=== PATIENT | male | born 1930 | race Caucasian/White ===

== ENCOUNTER → 2016-12-14 | Outpatient (CLI) | payer MEDICARE ==
[~2016-12-14] MED LIST: ALLO300T2 PO; AMLO5TAB2 PO; ASPI-875 PO; CITA20TA4 PO; LISI40TA PO; MELO-195 PO; MTF500T PO; TERA2CAP13 PO
== END ==
LOC: FS 10:12
PROVIDERS: ATTEND Internal Medicine Hematology & Oncology
DX: C18.7 Malignant neoplasm of sigmoid colon (principal); I25.10 Atherosclerotic heart disease of native coronary artery without angina pectoris; M19.90 Unspecified osteoarthritis, unspecified site; Z95.5 Presence of coronary angioplasty implant and graft; Z79.899 Other long term (current) drug therapy
CPT/HCPCS: 99213

== ENCOUNTER → 2017-06-21 | Outpatient (CLI) | payer MEDICARE | LOC: ONC 13:42 | PROVIDERS: ATTEND Internal Medicine Hematology & Oncology | DX: C18.7 Malignant neoplasm of sigmoid colon (principal); I25.10 Atherosclerotic heart disease of native coronary artery without angina pectoris; I12.9 Hypertensive chronic kidney disease with stage 1 through stage 4 chronic kidney disease, or unspecified chronic kidney disease; N18.9 Chronic kidney disease, unspecified; E11.22 Type 2 diabetes mellitus with diabetic chronic kidney disease; N40.0 Benign prostatic hyperplasia without lower urinary tract symptoms; M19.91 Primary osteoarthritis, unspecified site; Z79.899 Other long term (current) drug therapy; Z95.5 Presence of coronary angioplasty implant and graft | CPT/HCPCS: 99213 ==

== ENCOUNTER 2018-09-09 10:57 | Inpatient (IN) | payer MEDICARE ==
[~2018-09-09] VITALS: Ht 170.2 cm; Wt 80.3 kg
[2018-09-09 13:45] VITALS: BP 101/66
[2018-09-09] MEDS ORDERED: NS IV 1000 ML 1,000 ML IV SCH (14:00)
--- OUTSIDE RECORDS SUMMARY | 2018-09-09 14:02 | XMS REPORT | Continuity of Care Document ---
Author Author [facility] Address Unknown Phone Unavailable Allergies Active Description Code Type Severity Reaction Onset Reported/Identified Relationship to Patient Clinical Status Yes No Known Allergies Drug N/A N/A Yes No Known Drug Allergies [id number] Drug Allergy Unknown N/A 08/10/2013 Medications There is no data. Problems Date Dx Coded Attending Type Code Diagnosis Diagnosed By 09/09/2014 ABE, BOBRUBY N Ot 153.3 09/09/2014 ABE, BOBAN N Ot 414.00 09/09/2014 AEB, BOBAN N Ot 585.3 09/09/2014 ABE, BOBAN N Ot V45.72 09/09/2014 ABE, BOBAN N Ot V45.82 09/09/2014 ABE, BOBAN N Ot V58.69 10/02/2014 ABE, BOBAN N Ot 153.3 10/02/2014 ABE, BOBAN N Ot 250.00 10/02/2014 ABE, BOBAN N Ot 403.90 10/02/2014 ABE, BOBAN N Ot 414.00 10/02/2014 ABE, BOBAN N Ot 585.3 10/02/2014 ABE, BOBAN N Ot 600.00 10/02/2014 ABE, BOBAN N Ot V45.72 10/02/2014 ABE, BOBAN N Ot V45.82 10/02/2014 ABE, BOBAN N Ot V58.69 12/27/2014 Ot 153.3 12/27/2014 Ot 414.00 12/27/2014 Ot 585.3 12/27/2014 Ot V12.3 12/27/2014 Ot V45.72 12/27/2014 Ot V45.82 12/27/2014 Ot V58.69 03/12/2015 ABE, BOBAN N Ot 153.3 03/12/2015 ABE, BOBAN N Ot 414.00 03/12/2015 ABE, BOBAN N Ot 715.89 03/12/2015 ABE, BOBAN N Ot V12.3 03/12/2015 ABE, BOBAN N Ot V45.72 03/12/2015 ABE, BOBAN N Ot V45.82 03/12/2015 ABE, BOBAN N Ot V58.69 03/18/2015 ABE, BOBAN N Ot 153.3 03/18/2015 ABE, BOBAN N Ot 414.00 03/18/2015 ABE, BOBAN N Ot 715.89 03/18/2015 ABE, BOBAN N Ot V12.3 03/18/2015 ABE, BOBAN N Ot V45.72 03/18/2015 ABE, BOBAN N Ot V45.82 03/18/2015 ABE, BOBAN N Ot V58.69 04/07/2015 ABE, BOBAN N Ot 153.3 04/07/2015 ABE, BOBAN N Ot 414.00 04/07/2015 ABE, BOBAN N Ot 715.89 04/07/2015 ABE, BOBAN N Ot V12.3 04/07/2015 ABE, BOBAN N Ot V45.72 04/07/2015 ABE, BOBAN N Ot V45.82 04/07/2015 ABE, BOBAN N Ot V58.69 07/16/2015 ABE, BOBAN N Ot 153.3 07/16/2015 ABE, BOBAN N Ot 414.00 07/16/2015 ABE, BOBAN N Ot 715.89 07/16/2015 ABE, BOBAN N Ot V45.72 07/16/2015 ABE, BOBAN N Ot V45.82 07/16/2015 ABE, BOBAN N Ot V58.69 12/17/2015 ABE, BOBAN N Ot C18.7 12/17/2015 ABE, BOBAN N Ot I25.10 12/17/2015 ABE, BOBAN N Ot M19.90 12/17/2015 ABE, BOBAN N Ot Z79.899 12/17/2015 ABE, BOBAN N Ot Z95.5 01/06/2016 ABE, BOBAN N Ot C18.7 01/06/2016 ABE, BOBAN N Ot I25.10 01/06/2016 ABE, BOBAN N Ot M19.90 01/06/2016 ABEKHUSHBOO GONZALEZAN N Ot Z79.899 01/06/2016 ABEKHUSHBOOAN N Ot Z95.5 06/16/2016 ABEWILLIAM N Ot C18.7 MALIGNANT NEOPLASM OF SIGMOID COLON 06/16/2016 ABE BOBAN N Ot I25.10 ATHSCL HEART DISEASE OF [place] CORONARY 06/16/2016 ABEKHUSHBOO GONZALEZAN N Ot M19.90 UNSPECIFIED OSTEOARTHRITIS, UNSPECIFIED 06/16/2016 ABE BOBAN N Ot Z79.899 OTHER AU PAIR (CURRENT) DRUG THERAPY 06/16/2016 ABEKHUSHBOOAN N Ot Z95.5 PRESENCE OF CORONARY ANGIOPLASTY IMPLANT 07/07/2016 ABE BOBAN N Ot C18.7 MALIGNANT NEOPLASM OF SIGMOID COLON 07/07/2016 ABEKHUSHBOOAN N Ot I25.10 ATHSCL HEART DISEASE OF [place] CORONARY 07/07/2016 ABEKHUSHBOOAN N Ot M19.90 UNSPECIFIED OSTEOARTHRITIS, UNSPECIFIED 07/07/2016 ABE BOBAN N Ot Z79.899 OTHER AU PAIR (CURRENT) DRUG THERAPY 07/07/2016 ABEKHUSHBOOAN N Ot Z95.5 PRESENCE OF CORONARY ANGIOPLASTY IMPLANT 12/15/2016 ABE, BOBAN N Ot C18.7 MALIGNANT NEOPLASM OF SIGMOID COLON 12/15/2016 ABEWILLIAM N Ot I25.10 ATHSCL HEART DISEASE OF [place] CORONARY 12/15/2016 KHUSHBOO FISHAN N Ot M19.90 UNSPECIFIED OSTEOARTHRITIS, UNSPECIFIED 12/15/2016 ABE, BOBAN N Ot Z79.899 OTHER LONGTERM (CURRENT) DRUG THERAPY 12/15/2016 ABE BOBAN N Ot Z95.5 PRESENCE OF CORONARY ANGIOPLASTY IMPLANT 01/04/2017 ABEKHUSHBOOAN N Ot C18.7 MALIGNANT NEOPLASM OF SIGMOID COLON 01/04/2017 ABE BOBAN N Ot I25.10 ATHSCL HEART DISEASE OF [place] CORONARY 01/04/2017 ABE BOBAN N Ot M19.90 UNSPECIFIED OSTEOARTHRITIS, UNSPECIFIED 01/04/2017 ABE, BOBAN N Ot Z79.899 OTHER LONGTERM (CURRENT) DRUG THERAPY 01/04/2017 ABE BOBAN N Ot Z95.5 PRESENCE OF CORONARY ANGIOPLASTY IMPLANT 07/14/2017 ABE BOBAN N Ot C18.7 MALIGNANT NEOPLASM OF SIGMOID COLON 07/14/2017 ABE, BOBAN N Ot 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 07/14/2017 ABE, BOBAN N Ot I12.9 HYPERTENSIVE CHRONIC KIDNEY DISEASE W ST 07/14/2017 ABE, BOBAN N Ot I25.10 ATHSCL HEART DISEASE OF [place] CORONARY 07/14/2017 ABE, BOBAN N Ot M19.91 PRIMARY OSTEOARTHRITIS, UNSPECIFIED SITE 07/14/2017 ABE, BOBAN N Ot N18.9 CHRONIC KIDNEY DISEASE, UNSPECIFIED 07/14/2017 ABE, BOBAN N Ot N40.0 BENIGN PROSTATIC HYPERPLASIA WITHOUT LOW 07/14/2017 ABE, BOBAN N Ot Z79.899 OTHER AU PAIR (CURRENT) DRUG THERAPY 07/14/2017 ABE, BOBAN N Ot Z95.5 PRESENCE OF CORONARY ANGIOPLASTY IMPLANT 08/26/2017 ABE BOBAN N Ot C18.7 MALIGNANT NEOPLASM OF SIGMOID COLON 08/26/2017 ABE, BOBAN N Ot 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 08/26/2017 ABE, BOBAN N Ot I12.9 HYPERTENSIVE CHRONIC KIDNEY DISEASE W ST 08/26/2017 ABE, BOBAN N Ot I25.10 ATHSCL HEART DISEASE OF [place] CORONARY 08/26/2017 ABE, BOBAN N Ot M19.91 PRIMARY OSTEOARTHRITIS, UNSPECIFIED SITE 08/26/2017 ABE, BOBAN N Ot N18.9 CHRONIC KIDNEY DISEASE, UNSPECIFIED 08/26/2017 ABE, BOBAN N Ot N40.0 BENIGN PROSTATIC HYPERPLASIA WITHOUT LOW 08/26/2017 ABE, BOBAN N Ot Z79.899 OTHER AU PAIR (CURRENT) DRUG THERAPY 08/26/2017 ABE, BOBAN N Ot Z95.5 PRESENCE OF CORONARY ANGIOPLASTY IMPLANT 05/15/2018 DEDRICK ELLIOTT MD E11.9 Type 2 diabetes mellitus without complications 05/15/2018 DEDRICK ELLIOTT MD F01.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 Results There is no data. Encounters ACCT No. Visit Date/Time Discharge Status Pt. Type Provider Facility Loc./Unit Complaint [id number] 04/14/2018 08:23:00 05/15/2018 14:25:00 DIS Inpatient DEDRICK ELLIOTT MD [facility] [id number] 04/14/2018 08:23:00 04/14/2018 23:59:59 CLS Outpatient Kailee De [id number] 06/24/2015 10:40:18 ACT Document Registration [id number] 06/21/2017 13:42:00 06/21/2017 23:59:59 CLS Outpatient ABE BOBAN N Via [facility] ONC [id number] 12/14/2016 10:12:00 12/14/2016 23:59:59 CLS Outpatient ABE, BOBAN N [facility] [id number] 06/15/2016 10:52:00 06/15/2016 23:59:59 CLS Outpatient ABE, BOBAN N [facility] [id number] 12/16/2015 10:16:00 12/16/2015 23:59:59 CLS Outpatient ABE BOBAN N [facility] [id number] 06/24/2015 10:40:00 06/24/2015 23:59:59 CLS Outpatient ABE, BOBAN N [facility] [id number] 03/11/2015 10:30:00 03/11/2015 23:59:59 CLS Outpatient ABE BOBAN N [facility] FS [id number] 09/03/2014 13:22:00 09/03/2014 23:59:59 CLS Outpatient ABE, BOBAN N [facility] [id number] 06/04/2014 14:18:00 06/04/2014 23:59:59 CLS Outpatient ABE, BOBAN N [facility] [id number] 02/05/2014 13:25:00 02/05/2014 23:59:59 CLS Outpatient [id number] 10/09/2013 12:56:00 10/09/2013 23:59:59 CLS Outpatient [id number] 08/20/2013 10:07:00 08/20/2013 23:59:59 CLS Outpatient [id number] 08/14/2013 09:23:00 08/14/2013 12:27:00 DIS Outpatient [id number] 08/10/2013 08:06:00 08/10/2013 23:59:59 CLS Outpatient [id number] 08/09/2013 07:50:00 08/09/2013 23:59:59 CLS Outpatient [id number] 05/22/2013 09:09:00 05/22/2013 23:59:59 CLS Outpatient [id number] 05/15/2013 11:49:00 05/15/2013 23:59:59 CLS Outpatient [id number] 12/27/2014 14:26:00 Document Registration
--- OUTSIDE RECORDS SUMMARY | 2018-09-09 14:02 | XMS REPORT | Clinical Summary ---
Author Author [facility] Organization [facility] Address Unknown Phone Unavailable Care Team Providers Care Intercell Connector Placer Name Role Phone Moi Patel MD PCP Unavailable Rich Cyr MD Unavailable Kimmy Jeff Tomás MURRAY Unavailable Dafne Lawrence RN Unavailable Unavailable Faviola Cruz RN Unavailable Unavailable Aruna Tucker RN Unavailable Unavailable Source Comments Some departments are not documenting in the electronic medical record. If you do not see the information that you expected, contact Release of Information in the Health Information Management department at [phone] for further assistance in locating additional records.[facility] Allergies No Known Allergies Medications End Date Status Medication Sig Dispensed Refills Start Date Active allopurinol (ZYLOPRIM) Take 300 mg 0 300 mg tablet by mouth daily. Active aspirin EC 81 mg tablet Take 81 mg by 0 mouth daily. Active citalopram (CELEXA) 20 mg Take 20 mg by 0 tablet mouth daily. Active meloxicam(+) (MOBIC) 15 Take 15 mg by 0 mg tablet mouth daily as needed. Active terazosin (HYTRIN) 2 mg Take 2 mg by 0 capsule mouth at bedtime daily. Active amLODIPine (NORVASC) 5 mg Take 5 mg by 0 tablet mouth daily. Active glipiZIDE CR (GLUCOTROL Take 2.5 mg 0 XL) 2.5 mg tablet by mouth daily with breakfast. Active acetaminophen (TYLENOL) Take 1 Tab by 30 Tab 1 325 mg tablet mouth every 4 3 hours as needed for Pain. Active oxyCODone (ROXICODONE) 5 Take 0.5 Tabs 30 Tab 0 mg tablet by mouth 3 every 6 hours as needed for Pain Earliest Fill Date: 09/11/13 Active senna/docusate Take 1 Tab by 60 Tab 0 (SENOKOT-S) 8.6/50 mg mouth daily. 3 tablet Active lidocaine (LIDODERM) 5 % Place to 30 Patch 1 topical patch savanah-incision 3 al area q12 hours. 12 hours on, then 12 hours off. Active clindamycin (CLEOCIN) 150 Take 150 mg 0 mg capsule by mouth three times daily. last dose will be 09/28/13 Active mirtazapine (REMERON) 15 Take 1 Tab by 5 Tab 0 mg tablet mouth at 3 bedtime daily. Active Problems Problem Noted Date Colon cancer 09/10/2013 Pneumothorax of right lung after biopsy 06/29/2013 Family History Medical History Relation Name Comments Cancer Father Mouth/Throat Cancer Cancer Maternal Rectal cancer Grandmother Relation Name Status Comments Father Maternal Grandmother Social History Date Tobacco Use Types Packs/Day Years Used Never Smoker Smokeless Tobacco: Never Used Alcohol Use Drinks/Week oz/Week Comments No Sex Assigned at Date Recorded Not on file Industry Job Start Date Occupation Not on file Not on file Not on file Travel End Travel History Travel Start No recent travel history available. Last Filed Vital Signs Time Taken Vital Sign Reading 10/26/2013 10:39 AM [employer] Blood Pressure 141/72 10/26/2013 10:39 AM [employer] Pulse 75 09/11/2013 8:00 AM [employer] Temperature 36.5 C (97.7 F) - Respiratory Rate - 10/26/2013 10:39 AM [employer] Oxygen Saturation 98% - Inhaled Oxygen - Concentration 10/26/2013 10:39 AM [employer]ER Weight 94.2 kg (207 lb 9.6 oz) 10/26/2013 10:39 AM [employer] EX[employer] Height 168.9 cm (5' 6.5") 10/26/2013 10:39 AM [employer] EXAM[employer]ER Body Mass Index 33.01 Plan of Treatment Health Maintenance Due Date Last Done Comments PHYSICAL (COMPREHENSIVE) 01/20/1937 EXAM DTAP/TDAP VACCINES (1 - 01/20/1950 Tdap) SHINGLES RECOMBINANT 01/20/1982 VACCINE (1 of 2) PNEUMONIA (PCV13/PPSV23) 01/20/1997 VACCINES (1 of 2 - PCV13) INFLUENZA VACCINE 05/03/2018 Results Not on filefrom Last 3 Months Insurance Payer Benefit Subscriber ID Type Phone Address Plan / Group MEDICARE MEDICARE xxxxxxxxxx Medicare PART A AND B BCBS YOMI BCBS YOMI xxxxxxxxxxxxxxx [place] ([place]) [place] [address] Advance Directives Patient has advance care planning documents, and code status on file. For more information, please contact: [facility] [address] [place] [address] Date Inactivated Comments Code Status Date Activated 09/11/2013 2:16 PM Full Code 09/04/2013 12:28 PM Provider has discussed Code Status Yes w/Patient or Family? 09/04/2013 12:28 PM Full Code 09/04/2013 10:22 AM Provider has discussed Code Status Yes w/Patient or Family? 06/30/2013 6:34 PM Full Code 06/29/2013 4:34 PM Provider has discussed Code Status No, more discussion w/Patient or Family? needed
[2018-09-09 14:11] LABS: BASOPHILS % (AUTO) 0 % (0-10); EOSINOPHILS % (AUTO) 0 % (0-10); HEMATOCRIT 36 % (40-54); LYMPHOCYTES # (AUTO) 0.8 X 10^3 (1.0-4.0); LYMPHOCYTES % (AUTO) 6 % (12-44); MEAN CORPUSCULAR HEMOGLOBIN 32 PG (25-34); MEAN CORPUSCULAR HGB CONC 33 G/DL (32-36); MEAN CORPUSCULAR VOLUME 97 FL (80-99); MEAN PLATELET VOLUME 10.8 FL (7.4-10.4); MONOCYTES # (AUTO) 0.3 X 10^3 (0.0-1.0); MONOCYTES % (AUTO) 2 % (0-12); NEUTROPHILS # (AUTO) 12.3 X 10^3 (1.8-7.8); NEUTROPHILS % (AUTO) 92 % (42-75); PLATELET COUNT 170 10^3/uL (130-400); RED BLOOD COUNT 3.73 10^6/uL (4.35-5.85); RED CELL DISTRIBUTION WIDTH 14.8 % (10.0-14.5); WHITE BLOOD COUNT 13.4 10^3/uL (4.3-11.0)
[2018-09-09] MEDS: cefTRIAXone FOR IV USE 1,000 MG in NS (IVPB) 50 ML IV SCH (14:11)
[2018-09-09] MEDS: NS IV 1000 ML 1,000 ML IV SCH ×4 (14:12→22:24)
[2018-09-09 14:32] LABS: ALBUMIN 3.1 GM/DL (3.2-4.5); BILIRUBIN,TOTAL 1.2 MG/DL (0.1-1.0); CALCIUM 8.8 MG/DL (8.5-10.1); CREATININE SERUM 1.79 MG/DL (0.60-1.30); POTASSIUM 4.2 MMOL/L (3.6-5.0)
[2018-09-09 14:41] LABS: BAND NEUTROPHILS 2 %; LYMPHOCYTES % (MANUAL) 3 %; MONOCYTES % (MANUAL) 4 %; NEUTROPHILS % (MANUAL) 91 %; RBC MORPH NORMAL
[2018-09-09] MEDS ORDERED: LORazepam 0.5 MG (ATIVAN) TABLET PO SCH (16:00)
[2018-09-09] MEDS ORDERED: AMLO5TAB7 PO (16:08)
[2018-09-09] MEDS ORDERED: RIVA1.5C6 PO (16:08)
[2018-09-09] MEDS ORDERED: TERA5CAP3 PO (16:08)
[2018-09-09] MEDS ORDERED: LORA0.5T PO (16:08)
[2018-09-09] MEDS ORDERED: DULO60CA58 PO (16:08)
[2018-09-09] MEDS ORDERED: GABA-486 PO (16:08)
[2018-09-09] MEDS ORDERED: ALLO300T2 PO (16:08)
[2018-09-09] MEDS ORDERED: LORA1TAB PO (16:08)
[2018-09-09] MEDS ORDERED: MEMA5TAB16 PO (16:08)
[2018-09-09] MEDS ORDERED: GABA-490 PO (16:08)
[2018-09-09] MEDS ORDERED: ZIPR40CA26 PO (16:08)
[2018-09-09] MEDS ORDERED: NF-GLIP2.5 PO (16:08)
[2018-09-09] MEDS ORDERED: MELO15TA39 PO (16:08)
[2018-09-09] MEDS ORDERED: LORazepam 0.5 MG (ATIVAN) TABLET ONE (16:17)
[2018-09-09] MEDS: NOREPINEPHRINE 4 MG in NS (IVPB) 250 ML IV SCH (16:18)
[2018-09-09] MEDS: LORazepam 0.5 MG (ATIVAN) TABLET PO PRN (16:37)
[2018-09-09] MEDS ORDERED: meTOprolol 5 MG/5 ML (LOPRESSOR) VIAL IV ONE (16:45)
[2018-09-09] MEDS: DILTIAZEM INJECTION 125 MG in NS (IVPB) 100 ML IV SCH (17:35)
[2018-09-09] MEDS ORDERED: ACETAMINOPHEN 80 MG CHEW/MELT (TYLENOL) PO PRN (18:45)
[2018-09-09 19:00] VITALS: BP 112/72
[2018-09-09 20:00] VITALS: BP 99/64
[2018-09-09] MEDS: ZIPRASIDONE 80 MG (GEODON) CAP PO SCH (20:25)
[2018-09-09 21:00] VITALS: BP 93/79
[2018-09-09] MEDS: inSUlin ASPART (NovoLOG) 1 UNIT/0.01 ML (CHARGE PER UNIT) SC SCH (21:00)
[2018-09-09] MEDS ORDERED: ZIPRASIDONE 80 MG (GEODON) CAP PO SCH (21:00)
[2018-09-09 22:00] VITALS: BP 94/56
[2018-09-09 23:00] VITALS: BP 93/54
[2018-09-10] VITALS (26 sets, daily range): BP systolic 87–132; BP diastolic 48–96
[2018-09-10] MEDS ORDERED: NS IV 1000 ML 1,000 ML IV ONE (01:45)
[2018-09-10] MEDS: NOREPINEPHRINE 4 MG in NS (IVPB) 250 ML IV SCH ×2 (02:11→14:18)
[2018-09-10] MEDS: NS IV 1000 ML 1,000 ML IV SCH ×4 (03:27→16:27)
[2018-09-10 03:47] LABS: BASOPHILS % (AUTO) 0 % (0-10); EOSINOPHILS % (AUTO) 0 % (0-10); HEMATOCRIT 32 % (40-54); HEMOGLOBIN 10.6 G/DL (13.3-17.7); LYMPHOCYTES # (AUTO) 0.8 X 10^3 (1.0-4.0); LYMPHOCYTES % (AUTO) 6 % (12-44); MEAN CORPUSCULAR HEMOGLOBIN 33 PG (25-34); MEAN CORPUSCULAR HGB CONC 33 G/DL (32-36); MEAN CORPUSCULAR VOLUME 99 FL (80-99); MEAN PLATELET VOLUME 10.9 FL (7.4-10.4); MONOCYTES # (AUTO) 0.8 X 10^3 (0.0-1.0); MONOCYTES % (AUTO) 6 % (0-12); NEUTROPHILS # (AUTO) 12.5 X 10^3 (1.8-7.8); NEUTROPHILS % (AUTO) 89 % (42-75); PLATELET COUNT 124 10^3/uL (130-400); RED BLOOD COUNT 3.25 10^6/uL (4.35-5.85); RED CELL DISTRIBUTION WIDTH 14.8 % (10.0-14.5); WHITE BLOOD COUNT 14.1 10^3/uL (4.3-11.0)
[2018-09-10 04:14] LABS: ALBUMIN 2.8 GM/DL (3.2-4.5); BILIRUBIN,TOTAL 0.6 MG/DL (0.1-1.0); CALCIUM 8.4 MG/DL (8.5-10.1); CREATININE SERUM 1.42 MG/DL (0.60-1.30); MAGNESIUM 1.5 MG/DL (1.8-2.4); PHOSPHORUS 3.2 MG/DL (2.3-4.7); TOTAL PROTEIN 5.4 GM/DL (6.4-8.2)
[2018-09-10] MEDS: MAGNESIUM 1 GM/100 ML IVPB 100 ML IV SCH ×3 (04:50→07:30)
--- NOTE | 2018-09-10 06:53 | Pulmonary Consultation ---
History of Present Illness History of Present Illness Date of Consultation 09/10/18 06:52 Date of Admission Allergies and Home Medications Allergies Coded Allergies: No Known Drug Allergies (Unverified , 08/10/13) Home Medications Allopurinol 300 Mg Tab, 300 MG PO DAILY, (Reported) Allopurinol 300 Mg Tablet, 300 MG PO DAILY, (Reported) Amlodipine Besylate 5 Mg Tab, 5 MG PO DAILY, (Reported) Amlodipine Besylate 5 Mg Tablet, 5 MG PO DAILY, (Reported) Aspirin 81 Mg Tablet.dr, 81 MG PO DAILY, (Reported) Citalopram Hydrobromide 20 Mg Tablet, 20 MG PO HS, (Reported) Duloxetine HCl 60 Mg Capsule.dr, 60 MG PO BID, (Reported) Gabapentin 100 Mg Capsule, 100 MG PO TID, (Reported) Gabapentin 400 Mg Capsule, 100 MG PO TID, (Reported) Glipizide 2.5 Mg Tab, 2.5 MG PO DAILY, (Reported) Lorazepam 1 Mg Tablet, 1 MG PO DAILY, (Reported) Lorazepam 0.5 Mg Tablet, 1 MG PO PRN, (Reported) Meloxicam 15 Mg Tablet, 15 MG PO HS PRN for ANXIETY, (Reported) Meloxicam 15 Mg Tablet, 15 MG PO DAILY, (Reported) Memantine HCl 5 Mg Tablet, 5 MG PO BID, (Reported) Rivastigmine Tartrate 1.5 Mg Capsule, 1.5 MG PO BID, (Reported) Terazosin HCl 5 Mg Capsule, 5 MG PO HS, (Reported) Terazosin Hcl 2 Mg Capsule, 2 MG PO HS, (Reported) Ziprasidone HCl 40 Mg Capsule, 40 MG PO DAILY, (Reported) Past Skxfgbw-Iqydfq-Irwlum Hx Patient Social History Smoking Status: Never a Smoker Recent Foreign Travel: No Contact w/Someone Who Travel: No Recent Infectious Disease Expo: No Immunizations Up To Date Date of Influenza Vaccine: Jul 10, 2018 Sepsis Event Evaluation Height, Weight, BMI Height: 5'7.00" Weight: 208lbs. 0.0oz. 94.820812xk; 32.6 BMI Method: Exam Exam Vital Signs Date Time Temp Pulse Resp B/P (MAP) Pulse Ox O2 Delivery O2 Flow Rate FiO2 09/10/18 06:10 87 20 111/65 (80) 91 Nasal Cannula 2.00 09/10/18 05:10 77 21 110/68 (82) 91 Nasal Cannula 2.00 09/10/18 04:00 72 9 98/58 (71) 92 Nasal Cannula 2.00 09/10/18 04:00 98.0 09/10/18 04:00 94 Nasal Cannula 2.00 09/10/18 03:00 68 15 94/56 (69) 92 Nasal Cannula 2.00 09/10/18 02:00 64 20 99/53 (68) 94 Nasal Cannula 2.00 09/10/18 01:00 70 09/10/18 01:00 77 10 87/54 (65) 92 Nasal Cannula 2.00 09/10/18 00:00 79 15 87/48 (61) 93 Nasal Cannula 2.00 09/10/18 00:00 94 Nasal Cannula 2.00 09/10/18 00:00 99.8 09/09/18 23:00 80 23 93/54 (67) 92 Nasal Cannula 2.00 09/09/18 22:00 100.2 09/09/18 22:00 84 29 94/56 (69) 94 Nasal Cannula 2.00 09/09/18 21:00 86 14 93/79 (84) 93 Nasal Cannula 2.00 09/09/18 20:00 100.8 09/09/18 20:00 94 Room Air 09/09/18 20:00 100 8 99/64 (76) 90 Nasal Cannula 2.00 09/09/18 19:00 105 09/09/18 19:00 105 17 112/72 (85) 92 Nasal Cannula 2.00 09/09/18 16:00 98.9 09/09/18 16:00 94 Room Air 09/09/18 14:46 94 Room Air 09/09/18 13:45 99.0 81 25 101/66 (78) 92 Room Air 09/09/18 13:00 90 I & O 09/10/18 07:00 Intake Total 1150 ml Output Total 800 ml Balance 350 ml Height & Weight Height: 5'7.00" Weight: 208lbs. 0.0oz. 94.826162dd; 32.6 BMI Method: Results Lab Laboratory Tests 09/09/18 13:54 09/10/18 03:35 ROSS QUINTANILLA DO Sep 10, 2018 06:53
[2018-09-10] MEDS ORDERED: morphine INJ 4 MG/ML 1 ML (VIAL/SYRINGE) ONE (06:57)
[2018-09-10] MEDS ORDERED: meTOprolol 5 MG/5 ML (LOPRESSOR) VIAL ONE (06:57)
[2018-09-10] MEDS ORDERED: NITROGLYCERIN 0.4 MG SL TABS BTL 25'S SL ONE (07:06)
[2018-09-10] MEDS: DILTIAZEM INJECTION 125 MG in NS (IVPB) 100 ML IV SCH ×2 (07:15→15:18)
[2018-09-10] MEDS: inSUlin ASPART (NovoLOG) 1 UNIT/0.01 ML (CHARGE PER UNIT) SC SCH ×4 (07:30→22:15)
[2018-09-10] MEDS: KCL 20 MEQ TAB (K-DUR) PO SCH (07:30)
[2018-09-10] MEDS: POTASSIUM CL 10MEQ/50ML IVPB 50 ML IV SCH (07:30)
--- NOTE | 2018-09-10 08:42 | History & Physical-Hospitalist ---
History of Present Illness HPI/Chief Complaint Pt is an 88yoCM with a PMH of dementia, HTN, NIDDMII who was direct admitted from OSH for septic shock. He is unable to provide me any history. Per outside records he presented due to lethargy and fever. He was found to be septic likely from a urinary source. HE was to be admitted at outside facility but unfortunately after antibiotic administration he has worsening hypotension and required pressors to maintain BP. He was transferred here for ICU level care due to septic shock. At this time he is lying in bed comfortably but does not respond. No family at bedside currently. He reportedly became agitated this morning and was given Ativan which has calmed him significantly. He is no longer on pressors. Source: patient Exam Limitations: clinical condition Date Seen 09/10/18 Time Seen by a Provider: 08:33 Attending Physician Mohini Holt MD PCP Moi Patel MD Referring Physician Date of Admission Sep 09, 2018 at 13:32 Home Medications & Allergies Home Medications Reviewed patient Home Medication Reconciliation performed by pharmacy medication reconciliations device repair technician and/or nursing. Patients Allergies have been reviewed. Allergies Allergies Coded Allergies No Known Drug Allergies (Yztpaqnkno24/8/13) Past Aduifqv-Szoosx-Cmsulj Hx Past Med/Social Hx: Reviewed Nursing Past Med/Soc Hx Patient Social History Employed/Student: retired Smoking Status: Never a Smoker Recent Foreign Travel: No Contact w/other who traveled: No Recent Infectious Disease Expo: No Immunizations Up To Date Date of Influenza Vaccine: Jul 10, 2018 Past Medical History Cardiac: Hypertension Neurological: Dementia Endocrine: Diabetes, Non-Insulin dep Psychosocial: Anxiety Family History Reviewed Nursing Family Hx Review of Systems ROS-Unable to Obtain: Unable to obtain Constitutional: see HPI Physical Exam Physical Exam Vital Signs Vital Signs - First Documented 09/09/18 09/09/18 09/10/18 13:00 13:45 07:25 Temp 99.0 Pulse 90 Resp 25 B/P (MAP) 101/66 (78) Pulse Ox 92 O2 Delivery Room Air FiO2 60 Capillary Refill : Height, Weight, BMI Height: 5'7.00" Weight: 183lbs. 0.0oz. 83.766907ye; 32.6 BMI Method: General Appearance: No Apparent Distress, Chronically ill HEENT: PERRL/EOMI, Moist Mucous Membranes Neck: Non Tender, Supple Respiratory: Lungs Clear, No Respiratory Distress, Other (On Vapotherm) Cardiovascular: Regular Rate, Rhythm, No Murmur Gastrointestinal: Normal Bowel Sounds, Non Tender, Soft Genital/Rectal: Other (light in place) Extremity: No Calf Tenderness, No Pedal Edema, Slow Capillary Refill Neurologic/Psychiatric: Alert, Other (did not respond to verbal stimuli, aroused to physical stimuli) Skin: Normal Color, Warm/Dry; No Mottled Results Results/Procedures Labs Patient resulted labs reviewed. Imaging: Reviewed Imaging Report Assessment/Plan Admission Diagnosis Septic Shock Admission Status: Inpatient Order (span 2 midnights) Reason for Inpatient Admission: septic shock, need IV abx and was on pressors, will take more than tow midnights to stabilize for discharge Critical Care Critically Ill Patient Diagnosis/Problems Diagnosis/Problems (1) Septic shock Status: Acute Assessment & Plan: Likely urinary source Continue on Rocephin Cultures from [facility] faxed and reveal GNR Await sensitivities (2) Atrial fibrillation with RVR Status: Acute Assessment & Plan: Rates up to 160 yesterday with hypotension Started on cardizem gtt per Cardiology troponin negative Cardiology consulted, appreciate recs Rate improved (3) AP (acute kidney injury) Status: Acute Assessment & Plan: Per Report from ER Physician at OSH Creatinine baseline is ~ 1 Down to 1.4 from 1.7 yesterday Trend Continue IVF resuscitation (4) Thrombocytopenia Status: Acute Assessment & Plan: New today Trend Likely due to dilution and GNR bacteremia (5) Dysphagia Status: Acute Assessment & Plan: Per RN daughter reports he has been choking on food Will consult ST Currently on dysphagia diet Qualifiers: Dysphagia type: unspecified Qualified Codes: R13.10 - Dysphagia, unspecified (6) Dementia Status: Chronic Assessment & Plan: Long standing but became agitated over night requiring Ativan Monitor closely Likely acutely worsened by ICU psychosis Qualifiers: Alzheimer's disease onset: unspecified onset Dementia behavioral disturbance: with behavioral disturbance Clinical Quality Measures DVT/VTE Risk/Contraindication: Risk Factor Score Per Nursin RFS Level Per Nursing on Admit: 4+=Very High MOHINI HOLT MD Sep 10, 2018 08:42
[2018-09-10 10:15] LABS: ABG BASE EXCESS -3.8 MMOL/L (-2.5-2.5); ABG OXYGEN SATURATION 96 % (94-100); ABG PCO2 41 MMHG (35-45); ABG PO2 73 MMHG (79-93); ABG TCO2 22.7 MMOL/L (21.0-31.0)
[2018-09-10 10:18] LABS: ABG PH 7.33 (7.37-7.43)
[2018-09-10 10:19] LABS: ALLENS TEST YES-POS; INSPIRED O2 20L/60%; PATIENT TEMP 97.3; VENTILATOR NO
--- NOTE | 2018-09-10 11:10 | Consultation-Cardiology ---
HPI-Cardiology Cardiology Consultation: Date of Consultation 09/10/18 Time Seen by a Provider: 10:45 Date of Admission Attending Physician Nisha Holt MD Admitting Physician Moi Patel MD Consulting Physician GARRISON CARTER MD, MA, FACP, FACC, FSCAI, CCDS HPI: Chief Complaint: Reasons for consultation: PAF with RVR HPI: 88 yo man transferred from [facility] yesterday to Dr Holt's service for treatment of UTI with septicemia. Has had PAF during this hosp. Cannot provide any history due to dementia. A daughter by his bedside was able tell us that the transfer from his care facility to [facility] was for high-grade fever, penile discharge, and some chest discomfort (of which she doesn't know details and the patient is unable to provide details). Has a h/o communication disability due to advance dementia. Has not been reporting shortness of breath. Has not had syncope or leg swelling. Has not report other symptoms Review of Systems-Cardiology Review of Systems Constitutional: other (Unable to obtain ROS from the patient due to dementia. To the extent it could be obtained from secondary sources is noted under HPI) [id number] Hx Patient Social History Smoking Status: Never a Smoker Recent Foreign Travel: No Recent Infectious Disease Expo: No Immunizations Up To Date Date of Influenza Vaccine: Jul 10, 2018 Past Medical History PMH As described under Assessment. Family Medical History Family Medical History: Fam h/o CAD (brother) according to old records Allergies and Home Medications Allergies Coded Allergies: No Known Drug Allergies (Unverified , 08/10/13) Home Medications Allopurinol 300 Mg Tab, 300 MG PO DAILY, (Reported) Allopurinol 300 Mg Tablet, 300 MG PO DAILY, (Reported) Amlodipine Besylate 5 Mg Tab, 5 MG PO DAILY, (Reported) Amlodipine Besylate 5 Mg Tablet, 5 MG PO DAILY, (Reported) Aspirin 81 Mg Tablet.dr, 81 MG PO DAILY, (Reported) Citalopram Hydrobromide 20 Mg Tablet, 20 MG PO HS, (Reported) Duloxetine HCl 60 Mg Capsule.dr, 60 MG PO BID, (Reported) Gabapentin 100 Mg Capsule, 100 MG PO TID, (Reported) Gabapentin 400 Mg Capsule, 100 MG PO TID, (Reported) Glipizide 2.5 Mg Tab, 2.5 MG PO DAILY, (Reported) Lorazepam 1 Mg Tablet, 1 MG PO DAILY, (Reported) Lorazepam 0.5 Mg Tablet, 1 MG PO PRN, (Reported) Meloxicam 15 Mg Tablet, 15 MG PO HS PRN for ANXIETY, (Reported) Meloxicam 15 Mg Tablet, 15 MG PO DAILY, (Reported) Memantine HCl 5 Mg Tablet, 5 MG PO BID, (Reported) Rivastigmine Tartrate 1.5 Mg Capsule, 1.5 MG PO BID, (Reported) Terazosin HCl 5 Mg Capsule, 5 MG PO HS, (Reported) Terazosin Hcl 2 Mg Capsule, 2 MG PO HS, (Reported) Ziprasidone HCl 40 Mg Capsule, 40 MG PO DAILY, (Reported) Patient Home Medication List Home Medication List Reviewed: Yes Physical Exam-Cardiology Physical Exam Vital Signs/I&O 09/10/18 09/10/18 09/10/18 09/10/18 00:00 00:00 00:00 01:00 Temp 99.8 Pulse 79 77 Resp 15 10 B/P (MAP) 87/48 (61) 87/54 (65) Pulse Ox 94 93 92 O2 Delivery Nasal Cannula Nasal Cannula Nasal Cannula O2 Flow Rate 2.00 2.00 2.00 09/10/18 09/10/18 09/10/18 09/10/18 01:00 02:00 03:00 04:00 Pulse 70 64 68 Resp 20 15 B/P (MAP) 99/53 (68) 94/56 (69) Pulse Ox 94 92 94 O2 Delivery Nasal Cannula Nasal Cannula Nasal Cannula O2 Flow Rate 2.00 2.00 2.00 09/10/18 09/10/18 09/10/18 09/10/18 04:00 04:00 05:10 06:10 Temp 98.0 Pulse 72 77 87 Resp 9 21 20 B/P (MAP) 98/58 (71) 110/68 (82) 111/65 (80) Pulse Ox 92 91 91 O2 Delivery Nasal Cannula Nasal Cannula Nasal Cannula O2 Flow Rate 2.00 2.00 2.00 09/10/18 09/10/18 09/10/18 09/10/18 07:00 07:04 07:19 07:25 Pulse 160 106 93 Resp 30 26 B/P (MAP) 126/60 (82) 113/68 (83) Pulse Ox 89 94 95 O2 Delivery Nasal Cannula Vapotherm Vapotherm O2 Flow Rate 2.00 60.00 20.00 20.00 FiO2 60 09/10/18 09/10/18 09/10/18 08:00 09:00 10:00 Pulse 75 72 66 Resp 22 21 20 B/P (MAP) 112/66 (81) 110/64 (79) 116/59 (78) Pulse Ox 94 94 94 O2 Delivery Vapotherm Nasal Cannula Nasal Cannula O2 Flow Rate 2.00 2.00 2.00 09/10/18 00:00 Intake Total 1150 ml Output Total 600 ml Balance 550 ml Capillary Refill : Constitutional: well-developed, well-nourished, other (unable to provide any history) HEENT: PERRL, other Neck: carotid pulses are 2 + bilaterally Respiratory: No accessory muscle use; other (fair to good bilat air entry; diminished at the bases) Cardiovascular: regular rate-rhythm, S1 and S2, systolic murmur (2/6 NATALYA at card base) Gastrointestinal: No tender; soft; No guarding, No rebound; audible bowel sounds Extremities: swelling (mild leg edema); No clubbing, No cyanosis Neurologic/Psychiatric: other (not able to answer questions of orientation; somnolent; seems to able to move all limbs equally) Skin: No rash on exposed areas, No ulcerations on exposed areas Data Review Labs Laboratory Tests 09/09/18 13:54: White Blood Count 13.4H, Red Blood Count 3.73L, Hemoglobin 12.0L, Hematocrit 36L , Mean Corpuscular Volume 97, Mean Corpuscular Hemoglobin 32, Mean Corpuscular Hemoglobin Concent 33, Red Cell Distribution Width 14.8H, Platelet Count 170, Mean Platelet Volume 10.8H, Neutrophils (%) (Auto) 92H, Lymphocytes (%) (Auto) 6L, Monocytes (%) (Auto) 2, Eosinophils (%) (Auto) 0, Basophils (%) (Auto) 0, Neutrophils # (Auto) 12.3H, Lymphocytes # (Auto) 0.8L, Monocytes # (Auto) 0.3, Eosinophils # (Auto) 0.0, Basophils # (Auto) 0.0, Neutrophils % (Manual) 91, Lymphocytes % (Manual) 3, Monocytes % (Manual) 4, Band Neutrophils 2, Blood Morphology Comment NORMAL, Sodium Level 139, Potassium Level 4.2, Chloride Level 107, Carbon Dioxide Level 22, Anion Gap 10, Blood Urea Nitrogen 30H, Creatinine 1.79H, Estimat Glomerular Filtration Rate 36, BUN/Creatinine Ratio 17 , Glucose Level 151H, Lactic Acid Level 1.45, Calcium Level 8.8, Corrected Calcium 9.5, Total Bilirubin 1.2H, Aspartate Amino Transf (AST/SGOT) 28, Alanine Aminotransferase (ALT/SGPT) 21, Alkaline Phosphatase 60, Total Protein 6.0L, Albumin 3.1L 09/10/18 03:35: White Blood Count 14.1H, Red Blood Count 3.25L, Hemoglobin 10.6L, Hematocrit 32L , Mean Corpuscular Volume 99, Mean Corpuscular Hemoglobin 33, Mean Corpuscular Hemoglobin Concent 33, Red Cell Distribution Width 14.8H, Platelet Count 124L, Mean Platelet Volume 10.9H, Neutrophils (%) (Auto) 89H, Lymphocytes (%) (Auto) 6L, Monocytes (%) (Auto) 6, Eosinophils (%) (Auto) 0, Basophils (%) (Auto) 0, Neutrophils # (Auto) 12.5H, Lymphocytes # (Auto) 0.8L, Monocytes # (Auto) 0.8, Eosinophils # (Auto) 0.0, Basophils # (Auto) 0.0, Sodium Level 140, Potassium Level 4.0, Chloride Level 112H, Carbon Dioxide Level 18L, Anion Gap 10, Blood Urea Nitrogen 32H, Creatinine 1.42H, Estimat Glomerular Filtration Rate 47, BUN/ Creatinine Ratio 23, Glucose Level 116H, Calcium Level 8.4L, Corrected Calcium 9.4, Total Bilirubin 0.6, Aspartate Amino Transf (AST/SGOT) 23, Alanine Aminotransferase (ALT/SGPT) 17, Alkaline Phosphatase 50, Total Protein 5.4L, Albumin 2.8L, Phosphorus Level 3.2, Magnesium Level 1.5L, Troponin I < 0.30 09/10/18 10:08: Blood Gas Puncture Site RT BRACH, Blood Gas Patient Temperature 97.3, Arterial Blood pH 7.33*L, Arterial Blood Partial Pressure CO2 41, Arterial Blood Partial Pressure O2 73L, Arterial Blood HCO3 21L, Arterial Blood Total CO2 22.7, Arterial Blood Oxygen Saturation 96, Arterial Blood Base Excess -3.8L, Jorge Test YES-POS, Blood Gas Ventilator Setting NO, Blood Gas Inspired Oxygen 20L/60% Laboratory Tests 09/09/18 13:54 09/10/18 03:35 A/P-Cardiology Assessment/Admission Diagnosis UTI with sepsis Sinus node dysfunction: NSR with 1st deg AVB alternating with PAF during this hospitalization Advanced dementia CAD: had cardiac cath a single coronary stent in 2004 (LAD stent: Taxus 2.5x16) . MPI of Aug 2013 showed apical infarction with small to mod ischemia, managed medically Echo of Aug 2013 showed LVEF 60%, mild AoV sclerosis and PASP 25 mmHg Chronic RBBB Colon cancer diagnosed in April 2013, treated with partial colectomy in Sep 2013 in . 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 I spoke with his daughter. 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 The request no pacemaker or intubation/mech vent or any other invasive management Clinical Quality Measures DVT/VTE Risk/Contraindication: Risk Factor Score Per Nursin RFS Level Per Nursing on Admit: 4+=Very High GARRISON CARTER MD FACP FAC CCDS Sep 10, 2018 11:10
[2018-09-10] MEDS: LORazepam 1 MG (ATIVAN) TAB PO SCH ×2 (11:15→12:05)
[2018-09-10] MEDS: ZIPRASIDONE 40 MG (GEODON) CAP PO SCH (11:17)
[2018-09-10] MEDS: cefTRIAXone FOR IV USE 1,000 MG in NS (IVPB) 50 ML IV SCH (12:08)
--- NOTE | 2018-09-10 14:11 | Diagnostic Imaging Report ---
INDICATION: Septic shock. FINDINGS: There is cardiomegaly. There is some venous congestion. Lungs are clear. There is no pleural effusion or pneumothorax. Mediastinum is unremarkable. IMPRESSION: Cardiomegaly and mild central pulmonary venous congestion. Dictated by: Dictated on workstation # [id number]
[2018-09-10] MEDS: LORazepam 0.5 MG (ATIVAN) TABLET PO PRN (14:43)
[2018-09-10] MEDS: ZIPRASIDONE 80 MG (GEODON) CAP PO SCH (22:16)
[2018-09-10] MEDS: APIXABAN 2.5 MG (ELIQUIS) TABLET PO SCH (22:16)
[2018-09-11] VITALS (16 sets, daily range): BP systolic 99–151; BP diastolic 63–90
[2018-09-11] MEDS: NOREPINEPHRINE 4 MG in NS (IVPB) 250 ML IV SCH ×2 (02:29→16:32)
[2018-09-11] MEDS: NS IV 1000 ML 1,000 ML IV SCH ×3 (02:29→21:43)
[2018-09-11 03:36] LABS: BASOPHILS % (AUTO) 0 % (0-10); EOSINOPHILS % (AUTO) 0 % (0-10); HEMATOCRIT 33 % (40-54); LYMPHOCYTES # (AUTO) 0.7 X 10^3 (1.0-4.0); LYMPHOCYTES % (AUTO) 8 % (12-44); MEAN CORPUSCULAR HEMOGLOBIN 32 PG (25-34); MEAN CORPUSCULAR HGB CONC 34 G/DL (32-36); MEAN CORPUSCULAR VOLUME 95 FL (80-99); MEAN PLATELET VOLUME 10.9 FL (7.4-10.4); MONOCYTES # (AUTO) 0.5 X 10^3 (0.0-1.0); MONOCYTES % (AUTO) 5 % (0-12); NEUTROPHILS # (AUTO) 7.8 X 10^3 (1.8-7.8); NEUTROPHILS % (AUTO) 86 % (42-75); PLATELET COUNT 153 10^3/uL (130-400); RED BLOOD COUNT 3.43 10^6/uL (4.35-5.85); WHITE BLOOD COUNT 9.1 10^3/uL (4.3-11.0)
[2018-09-11 04:03] LABS: ALANINE AMINOTRANSFERASE 17 U/L (0-55); ALBUMIN 2.9 GM/DL (3.2-4.5); ALKALINE PHOSPHATASE 57 U/L (40-136); BILIRUBIN,TOTAL 0.4 MG/DL (0.1-1.0); BUN/CREATININE RATIO 26; CALCIUM 8.6 MG/DL (8.5-10.1); CARBON DIOXIDE 18 MMOL/L (21-32); CHLORIDE 112 MMOL/L (98-107); CREATININE SERUM 1.01 MG/DL (0.60-1.30); GFR ESTIMATED > 60; GLUCOSE 103 MG/DL (70-105); MAGNESIUM 1.8 MG/DL (1.8-2.4); PHOSPHORUS 2.3 MG/DL (2.3-4.7); POTASSIUM 3.8 MMOL/L (3.6-5.0); SODIUM 141 MMOL/L (135-145); TOTAL PROTEIN 6.1 GM/DL (6.4-8.2)
[2018-09-11] MEDS: MAGNESIUM 1 GM/100 ML IVPB 100 ML IV SCH (06:19)
[2018-09-11] MEDS: POTASSIUM CL 10MEQ/50ML IVPB 50 ML IV SCH (06:19)
[2018-09-11] MEDS: KCL 20 MEQ TAB (K-DUR) PO SCH (06:20)
[2018-09-11] MEDS: inSUlin ASPART (NovoLOG) 1 UNIT/0.01 ML (CHARGE PER UNIT) SC SCH ×4 (06:20→19:59)
--- NOTE | 2018-09-11 07:17 | Pulmonary Progress Note ---
Subjective Time Seen by a Provider: 07:24 Subjective/Events-last exam Pt currently requiring 70% Vapotherm. He is still on Cardizem gtt. Sepsis Event Evaluation Height, Weight, BMI Height: 5'7.00" Weight: 184lbs. 0.5oz. 83.606869eb; 32.6 BMI Method: Focused Exam Lactate Level 09/09/18 13:54: Lactic Acid Level 1.45 Exam Exam Vital Signs Date Time Temp Pulse Resp B/P (MAP) Pulse Ox O2 Delivery O2 Flow Rate FiO2 09/11/18 06:40 93 Vapotherm 30.00 70 09/11/18 06:01 87 10 151/82 (105) 93 Vapotherm 70.00 30.00 09/11/18 06:00 97.2 09/11/18 05:01 84 11 146/75 (98) 92 Vapotherm 70.00 30.00 09/11/18 04:01 87 10 141/90 (107) 95 Vapotherm 70.00 30.00 09/11/18 04:00 98.0 09/11/18 04:00 94 Vapotherm 30.00 80 09/11/18 03:21 99.5 81 17 145/73 (97) 92 Vapotherm 70.00 30.00 09/11/18 03:02 80 25 104/63 (77) 93 Vapotherm 70.00 30.00 09/11/18 02:54 94 Vapotherm 30.00 70 09/11/18 02:02 82 17 133/69 (90) 94 Vapotherm 70.00 30.00 09/11/18 01:02 92 16 122/71 (88) 94 Vapotherm 70.00 30.00 09/11/18 01:00 87 09/11/18 00:02 78 27 117/73 (88) 96 Vapotherm 70.00 30.00 09/11/18 00:00 98.7 09/11/18 00:00 94 Vapotherm 30.00 80 09/10/18 23:25 82 20 94 Vapotherm 70.00 30.00 09/10/18 23:23 98.1 75 20 125/62 (83) 96 Vapotherm 80.00 30.00 09/10/18 23:22 96 Vapotherm 30.00 80 09/10/18 23:02 75 24 93/54 (67) 93 Vapotherm 80.00 30.00 09/10/18 22:02 79 10 116/67 (83) 100 Vapotherm 80.00 30.00 09/10/18 21:02 82 15 130/71 (90) 99 Vapotherm 80.00 30.00 09/10/18 20:02 76 19 132/87 (102) 99 Vapotherm 80.00 30.00 09/10/18 20:00 94 Vapotherm 30.00 80 09/10/18 19:31 96 Vapotherm 30.00 80 09/10/18 19:02 68 21 119/66 (83) 97 Vapotherm 80.00 30.00 09/10/18 19:00 74 09/10/18 19:00 97.9 09/10/18 18:00 70 21 113/60 (77) 97 Vapotherm 80.00 30.00 09/10/18 17:00 73 22 110/58 (75) 97 Vapotherm 80.00 30.00 09/10/18 16:00 75 21 114/61 (78) 97 Vapotherm 60.00 20.00 09/10/18 16:00 98.6 Vapotherm 80.00 30.00 09/10/18 16:00 94 Vapotherm 30.00 80 09/10/18 15:00 80 18 114/57 (76) 95 Vapotherm 60.00 20.00 09/10/18 14:51 90 Vapotherm 20.00 60 09/10/18 14:00 83 12 115/79 (91) 91 Vapotherm 60.00 20.00 09/10/18 13:00 73 09/10/18 13:00 71 19 118/96 (103) 92 Vapotherm 60.00 20.00 09/10/18 12:35 97.5 Vapotherm 60.00 20.00 09/10/18 12:00 94 Vapotherm 20.00 60 09/10/18 12:00 69 14 113/71 (85) 94 Nasal Cannula 2.00 09/10/18 12:00 99.3 09/10/18 11:00 68 24 116/72 (87) 94 Nasal Cannula 2.00 09/10/18 10:00 66 20 116/59 (78) 94 Nasal Cannula 2.00 09/10/18 09:00 72 21 110/64 (79) 94 Nasal Cannula 2.00 09/10/18 08:00 94 Vapotherm 20.00 60 09/10/18 08:00 75 22 112/66 (81) 94 Vapotherm 2.00 09/10/18 07:25 95 Vapotherm 20.00 60 09/10/18 07:19 93 26 113/68 (83) 94 Vapotherm 60.00 20.00 I & O 09/11/18 07:00 Intake Total 3500 ml Output Total 2975 ml Balance 525 ml Height & Weight Height: 5'7.00" Weight: 184lbs. 0.5oz. 83.717239zz; 32.6 BMI Method: General Appearance: No Apparent Distress, Chronically ill HEENT: PERRL/EOMI, Moist Mucous Membranes Neck: Non Tender, Supple Respiratory: Accessory Muscle Use, Decreased Breath Sounds, Other (On Vapotherm ) Cardiovascular: Regular Rate, Rhythm, No Murmur Extremity: No Calf Tenderness, No Pedal Edema, Slow Capillary Refill Neurologic/Psychiatric: Alert, Other (did not respond to verbal stimuli, aroused to physical stimuli) Skin: Normal Color, Warm/Dry; No Mottled Results Lab Laboratory Tests 09/09/18 13:54 09/10/18 03:35 09/11/18 03:10 Assessment/Plan Assessment/Plan Septic Shock - resolved Acute respiratory failure -Currently on Vapotherm at 70% oxygen -Titrate as tolerated for Sp02 90-95% Afib RVR -On Cardizem gtt -Cardiology following CP - resolved 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 Will consult hospice for education. I am not sure what the status is of his previous colon cancer. Pt is ok for transfer to [address] [place] [address] off Cardizem gtt. ROSS QUINTANILLA DO Sep 11, 2018 07:17
--- NOTE | 2018-09-11 08:37 | Progress Note-Cardiology ---
Cardiology SOAP Progress Note Subjective: Does not respond to questions. Sitter at the bedside d/t confusion at pulling at lines. Unable to obtain any information from pt. Objective: I&O/Vital Signs 09/11/18 09/11/18 09/11/18 09/11/18 19:49 20:00 20:00 21:00 Temp 98.5 Pulse 82 83 74 Resp 28 11 14 B/P (MAP) 99/73 (82) 139/75 (96) Pulse Ox 100 100 100 100 O2 Delivery Vapotherm Vapotherm Vapotherm Vapotherm O2 Flow Rate 50.00 25.00 50.00 50.00 30.00 30.00 30.00 FiO2 50 09/11/18 09/12/18 09/12/18 09/12/18 22:00 00:00 00:00 01:00 Temp 98.0 Pulse 82 80 Resp 21 B/P (MAP) 128/75 (92) Pulse Ox 100 100 100 O2 Delivery Vapotherm Vapotherm Vapotherm O2 Flow Rate 30.00 20.00 50.00 20.00 FiO2 50 50 09/12/18 09/12/18 09/12/18 09/12/18 01:00 01:56 02:00 03:00 Pulse 81 84 85 Resp 25 27 23 B/P (MAP) 129/98 (108) 143/74 (97) 133/67 (89) Pulse Ox 100 100 99 95 O2 Delivery Vapotherm Vapotherm Vapotherm Vapotherm O2 Flow Rate 50.00 20.00 35.00 35.00 20.00 15.00 15.00 FiO2 50 09/12/18 09/12/18 09/12/18 09/12/18 04:00 04:00 05:00 06:00 Pulse 85 88 85 Resp 14 26 20 B/P (MAP) 137/76 (96) 113/86 (95) 112/97 (102) Pulse Ox 100 100 99 99 O2 Delivery Vapotherm Vapotherm Vapotherm Vapotherm O2 Flow Rate 20.00 35.00 35.00 35.00 15.00 15.00 15.00 FiO2 50 09/12/18 06:48 Pulse Ox 98 O2 Delivery Vapotherm O2 Flow Rate 15.00 FiO2 35 09/12/18 00:00 Intake Total 1200 ml Output Total 2600 ml Balance -1400 ml Weight (Pounds): 184 Weight (Ounces): 0.5 Weight (Calculated Kilograms): 83.713913 Constitutional: well-developed, well-nourished, other (unable to provide any history) Respiratory: No accessory muscle use; other (fair to good bilat air entry; diminished at the bases) Cardiovascular: irregularly irregular, S1 and S2, systolic murmur (2/6 NATALYA at card base) Gastrointestional: No tender; soft; No guarding, No rebound; audible bowel sounds Extremities: swelling (mild leg edema); No clubbing, No cyanosis Neurologic/Psychiatric: other (not able to answer questions of orientation; somnolent; seems to able to move all limbs equally) Skin: No rash on exposed areas, No ulcerations on exposed areas Results/Procedures: Labs Laboratory Tests 09/11/18 11:04: Glucometer 95 09/11/18 15:36: Glucometer 99 09/11/18 19:58: Glucometer 100 09/12/18 03:40: White Blood Count 7.9, Red Blood Count 3.68L, Hemoglobin 11.7L, Hematocrit 34L, Mean Corpuscular Volume 93, Mean Corpuscular Hemoglobin 32, Mean Corpuscular Hemoglobin Concent 34, Red Cell Distribution Width 14.5, Platelet Count 146, Mean Platelet Volume 11.4H, Neutrophils (%) (Auto) 79H, Lymphocytes (%) (Auto) 11L, Monocytes (%) (Auto) 9, Eosinophils (%) (Auto) 1, Basophils (%) (Auto) 0, Neutrophils # (Auto) 6.2, Lymphocytes # (Auto) 0.9L, Monocytes # (Auto) 0.7, Eosinophils # (Auto) 0.1, Basophils # (Auto) 0.0, Sodium Level 140, Potassium Level 2.9L, Chloride Level 107, Carbon Dioxide Level 22, Anion Gap 11, Blood Urea Nitrogen 20H, Creatinine 0.81, Estimat Glomerular Filtration Rate > 60, BUN /Creatinine Ratio 25, Glucose Level 110H, Calcium Level 8.8, Corrected Calcium 9.6, Phosphorus Level 2.1L, Magnesium Level 1.3L, Total Bilirubin 0.6, Aspartate Amino Transf (AST/SGOT) 56H, Alanine Aminotransferase (ALT/SGPT) 32, Alkaline Phosphatase 69, Total Protein 6.0L, Albumin 3.0L Microbiology 09/09/18 Blood Culture - Preliminary, Resulted No growth 09/09/18 MRSA Screen - Final, Complete MRSA not isolated A/P: Assessment: UTI with sepsis Sinus node dysfunction: NSR with 1st deg AVB alternating with PAF during this hospitalization Advanced dementia CAD: had cardiac cath a single coronary stent in 2004 (LAD stent: Taxus 2.5x16) . MPI of Aug 2013 showed apical infarction with small to mod ischemia, managed medically Echo of Aug 2013 showed LVEF 60%, mild AoV sclerosis and PASP 25 mmHg Chronic RBBB Colon cancer diagnosed in April 2013, treated with partial colectomy in Sep 2013 in . 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 They request no pacemaker or intubation/mech vent or any other invasive management TIM FERRERA Sep 11, 2018 08:37
--- NOTE | 2018-09-11 09:19 | Diagnostic Imaging Report ---
EXAMINATION: Chest radiograph, portable AP view. DATE: September 11, 2018 at 0339 hours. INDICATION: 88-year-old male, septic shock. COMPARISON: September 10, 2018. FINDINGS: There are low lung volumes with associated central bronchovascular crowding. The lung volumes are unchanged since the comparison exam. Stable overall appearance of the cardiomediastinal silhouette. There is no identified pneumothorax. There is grossly unchanged nonspecific bibasilar airspace consolidation. IMPRESSION: Grossly unchanged prominent low lung volumes with nonspecific bibasilar airspace consolidation. Dictated by: Dictated on workstation # [id number]
[2018-09-11] MEDS: APIXABAN 2.5 MG (ELIQUIS) TABLET PO SCH ×2 (10:23→20:41)
[2018-09-11] MEDS: ZIPRASIDONE 40 MG (GEODON) CAP PO SCH (10:25)
[2018-09-11] MEDS: cefTRIAXone FOR IV USE 1,000 MG in NS (IVPB) 50 ML IV SCH (12:17)
[2018-09-11] MEDS ORDERED: ASPI-983 PO (12:58)
[2018-09-11] MEDS ORDERED: POLY17PO6 PO (12:58)
[2018-09-11] MEDS ORDERED: LIDO76.5 TP (12:58)
[2018-09-11] MEDS ORDERED: LORA1TAB PO (12:58)
[2018-09-11] MEDS ORDERED: ZPR40C PO (12:58)
[2018-09-11] MEDS ORDERED: ACET-2650 PO ×2 (12:58)
--- NOTE | 2018-09-11 14:20 | Speech Therapy Progress Note ---
Therapy Progress Note ST made 2 attempts to evaluate patient per physician's order. Patient was unable to participate due to current medical status at this time. BHARGAVI BECERRIL Sep 11, 2018 14:20
--- NOTE | 2018-09-11 15:10 | Progress Note-Hospitalist ---
Progress Note Progress Notes/Assess & Plan Date Seen 09/11/18 Time Seen by Provider: 14:56 Assessment & Plan The patient is an 88-year-old white male transferred to the hospital service from the [facility] emergency room. He had presented there in marginal status from an assisted living facility on a dementia wing. His daughter states that he had become aggressive and was sent to an inpatient [facility] facility. She stated that he been taking Risperdal for some period of time and this had been switched at the facility to [facility] and has gone down steadily since that period of time. He has a poor appetite and has lost considerable weight. His day-to- day performance is mostly bedfast. He has not ambulated since the [facility] experience. Physical exam: His eyes open from time to time all were in the room but he does not focus on anyone or attempt to speak. Lungs show shallow and distant breath sounds. CV is irregular and consistent with atrial fibrillation. Impression: Apparent UTI and sepsis. The patient had culture done at [facility] and these results are not available to us. 2.advanced dementia. 3.history of colon cancer with successful resection 2012. A PET scan at that time suggested multiple pulmonary metastases. The daughter states that these were biopsied and were not malignant. Plan: Continue present efforts. Nurse Dayanna and I had a espinoza discussion with the daughter relative to the options including comfort care. Focused Exam Lactate Level 09/09/18 13:54: Lactic Acid Level 1.45 GARRY PRIEST MD Sep 11, 2018 15:10
--- NOTE | 2018-09-11 15:10 | Progress Note-Cardiology ---
Cardiology SOAP Progress Note Subjective: Not able to provide any history Objective: I&O/Vital Signs 09/11/18 09/11/18 09/11/18 09/11/18 03:21 04:00 04:00 04:01 Temp 99.5 98.0 Pulse 81 87 Resp 17 10 B/P (MAP) 145/73 (97) 141/90 (107) Pulse Ox 92 94 95 O2 Delivery Vapotherm Vapotherm Vapotherm O2 Flow Rate 70.00 30.00 70.00 30.00 30.00 FiO2 80 09/11/18 09/11/18 09/11/18 09/11/18 05:01 06:00 06:01 06:40 Temp 97.2 Pulse 84 87 Resp 11 10 B/P (MAP) 146/75 (98) 151/82 (105) Pulse Ox 92 93 93 O2 Delivery Vapotherm Vapotherm Vapotherm O2 Flow Rate 70.00 70.00 30.00 30.00 30.00 FiO2 70 09/11/18 09/11/18 09/11/18 09/11/18 07:00 07:00 08:00 08:00 Pulse 101 88 80 Resp 23 18 B/P (MAP) 151/81 (104) 134/85 (101) Pulse Ox 94 93 94 O2 Delivery Vapotherm Vapotherm Vapotherm O2 Flow Rate 70.00 30.00 70.00 30.00 30.00 FiO2 80 09/11/18 09/11/18 09/11/18 09/11/18 08:00 09:00 10:00 11:00 Temp 99.3 Pulse 79 81 82 Resp 18 17 10 B/P (MAP) 144/72 (96) 141/76 (97) 142/75 (97) Pulse Ox 100 100 100 O2 Delivery Vapotherm Vapotherm Vapotherm O2 Flow Rate 70.00 70.00 70.00 30.00 30.00 30.00 09/11/18 09/11/18 09/11/18 09/11/18 12:00 12:00 12:00 13:00 Temp 98.1 Pulse 85 Resp 24 15 B/P (MAP) 133/70 (91) Pulse Ox 100 100 100 O2 Delivery Vapotherm Vapotherm Vapotherm O2 Flow Rate 70.00 30.00 70.00 30.00 30.00 FiO2 70 09/11/18 09/11/18 13:31 14:00 Pulse 85 Resp 35 Pulse Ox 100 100 O2 Delivery Vapotherm Vapotherm O2 Flow Rate 30.00 70.00 30.00 FiO2 70 09/11/18 00:00 Intake Total 2300 ml Output Total 1025 ml Balance 1275 ml Weight (Pounds): 184 Weight (Ounces): 0.5 Weight (Calculated Kilograms): 83.112175 Constitutional: well-developed, well-nourished, other (unable to provide any history) Respiratory: No accessory muscle use; other (fair to good bilat air entry; diminished at the bases) Cardiovascular: irregularly irregular, S1 and S2, systolic murmur (2/6 NATALYA at card base) Gastrointestional: No tender; soft; No guarding, No rebound; audible bowel sounds Extremities: swelling (mild leg edema); No clubbing, No cyanosis Neurologic/Psychiatric: other (not able to answer questions of orientation; somnolent; seems to able to move all limbs equally) Skin: No rash on exposed areas, No ulcerations on exposed areas Results/Procedures: Labs Laboratory Tests 09/10/18 15:54: Glucometer 163H 09/10/18 21:55: Glucometer 88 09/11/18 03:10: White Blood Count 9.1, Red Blood Count 3.43L, Hemoglobin 11.0L, Hematocrit 33L, Mean Corpuscular Volume 95, Mean Corpuscular Hemoglobin 32, Mean Corpuscular Hemoglobin Concent 34, Red Cell Distribution Width 15.0H, Platelet Count 153, Mean Platelet Volume 10.9H, Neutrophils (%) (Auto) 86H, Lymphocytes (%) (Auto) 8L, Monocytes (%) (Auto) 5, Eosinophils (%) (Auto) 0, Basophils (%) (Auto) 0, Neutrophils # (Auto) 7.8, Lymphocytes # (Auto) 0.7L, Monocytes # (Auto) 0.5, Eosinophils # (Auto) 0.0, Basophils # (Auto) 0.0, Sodium Level 141, Potassium Level 3.8, Chloride Level 112H, Carbon Dioxide Level 18L, Anion Gap 11, Blood Urea Nitrogen 26H, Creatinine 1.01, Estimat Glomerular Filtration Rate > 60, BUN /Creatinine Ratio 26, Glucose Level 103, Calcium Level 8.6, Corrected Calcium 9.5, Phosphorus Level 2.3, Magnesium Level 1.8, Total Bilirubin 0.4, Aspartate Amino Transf (AST/SGOT) 23, Alanine Aminotransferase (ALT/SGPT) 17, Alkaline Phosphatase 57, Total Protein 6.1L, Albumin 2.9L 09/11/18 11:04: Glucometer 95 Microbiology 09/09/18 Blood Culture - Preliminary, Resulted No growth 09/09/18 MRSA Screen - Final, Complete MRSA not isolated Laboratory Tests 09/10/18 03:35 09/11/18 03:10 A/P: Assessment: UTI with sepsis Sinus node dysfunction: NSR with 1st deg AVB alternating with PAF during this hospitalization Advanced dementia CAD: had cardiac cath a single coronary stent in 2004 (LAD stent: Taxus 2.5x16) . MPI of Aug 2013 showed apical infarction with small to mod ischemia, managed medically Echo of Aug 2013 showed LVEF 60%, mild AoV sclerosis and PASP 25 mmHg Chronic RBBB Colon cancer diagnosed in April 2013, treated with partial colectomy in Sep 2013 in . 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 They request no pacemaker or intubation/mech vent or any other invasive management GARRISON CARTER MD FACP [facility] Sep 11, 2018 15:10
[2018-09-11] MEDS: DILTIAZEM INJECTION 125 MG in NS (IVPB) 100 ML IV SCH (16:32)
[2018-09-11] MEDS: LORazepam 0.5 MG (ATIVAN) TABLET PO PRN (16:56)
[2018-09-11] MEDS: ZIPRASIDONE 80 MG (GEODON) CAP PO SCH (20:42)
[2018-09-12] VITALS (14 sets, daily range): BP systolic 112–158; BP diastolic 67–98
[2018-09-12] MEDS: LORazepam 0.5 MG (ATIVAN) TABLET PO PRN (02:52)
[2018-09-12 04:02] LABS: BASOPHILS % (AUTO) 0 % (0-10); EOSINOPHILS # (AUTO) 0.1 10^3/uL (0.0-0.3); EOSINOPHILS % (AUTO) 1 % (0-10); HEMATOCRIT 34 % (40-54); HEMOGLOBIN 11.7 G/DL (13.3-17.7); LYMPHOCYTES # (AUTO) 0.9 X 10^3 (1.0-4.0); LYMPHOCYTES % (AUTO) 11 % (12-44); MEAN CORPUSCULAR HEMOGLOBIN 32 PG (25-34); MEAN CORPUSCULAR HGB CONC 34 G/DL (32-36); MEAN CORPUSCULAR VOLUME 93 FL (80-99); MEAN PLATELET VOLUME 11.4 FL (7.4-10.4); MONOCYTES # (AUTO) 0.7 X 10^3 (0.0-1.0); MONOCYTES % (AUTO) 9 % (0-12); NEUTROPHILS # (AUTO) 6.2 X 10^3 (1.8-7.8); NEUTROPHILS % (AUTO) 79 % (42-75); PLATELET COUNT 146 10^3/uL (130-400); RED BLOOD COUNT 3.68 10^6/uL (4.35-5.85); RED CELL DISTRIBUTION WIDTH 14.5 % (10.0-14.5); WHITE BLOOD COUNT 7.9 10^3/uL (4.3-11.0)
[2018-09-12 04:21] LABS: ALANINE AMINOTRANSFERASE 32 U/L (0-55); ALKALINE PHOSPHATASE 69 U/L (40-136); BILIRUBIN,TOTAL 0.6 MG/DL (0.1-1.0); BUN/CREATININE RATIO 25; CALCIUM 8.8 MG/DL (8.5-10.1); CARBON DIOXIDE 22 MMOL/L (21-32); CHLORIDE 107 MMOL/L (98-107); CREATININE SERUM 0.81 MG/DL (0.60-1.30); GFR ESTIMATED > 60; GLUCOSE 110 MG/DL (70-105); MAGNESIUM 1.3 MG/DL (1.8-2.4); PHOSPHORUS 2.1 MG/DL (2.3-4.7); POTASSIUM 2.9 MMOL/L (3.6-5.0); SODIUM 140 MMOL/L (135-145)
[2018-09-12] MEDS: MAGNESIUM 1 GM/100 ML IVPB 100 ML IV SCH ×4 (04:55→06:52)
[2018-09-12] MEDS: POTASSIUM CL 10MEQ/50ML IVPB 50 ML IV SCH ×5 (04:59→07:37)
[2018-09-12] MEDS: KCL 20 MEQ TAB (K-DUR) PO SCH (05:02)
[2018-09-12] MEDS: inSUlin ASPART (NovoLOG) 1 UNIT/0.01 ML (CHARGE PER UNIT) SC SCH (05:03)
--- NOTE | 2018-09-12 07:22 | Pulmonary Progress Note ---
Subjective Time Seen by a Provider: 07:40 Subjective/Events-last exam Pt is still on Cardizem. Sepsis Event Evaluation Height, Weight, BMI Height: 5'7.00" Weight: 177lbs. 0.5oz. 80.635832md; 32.6 BMI Method: Focused Exam Lactate Level 09/09/18 13:54: Lactic Acid Level 1.45 Exam Exam Vital Signs Date Time Temp Pulse Resp B/P (MAP) Pulse Ox O2 Delivery O2 Flow Rate FiO2 09/12/18 06:48 98 Vapotherm 15.00 35 09/12/18 06:00 85 20 112/97 (102) 99 Vapotherm 35.00 15.00 09/12/18 05:00 88 26 113/86 (95) 99 Vapotherm 35.00 15.00 09/12/18 04:00 85 14 137/76 (96) 100 Vapotherm 35.00 15.00 09/12/18 04:00 100 Vapotherm 20.00 50 09/12/18 03:00 85 23 133/67 (89) 95 Vapotherm 35.00 15.00 09/12/18 02:00 84 27 143/74 (97) 99 Vapotherm 35.00 15.00 09/12/18 01:56 100 Vapotherm 20.00 50 09/12/18 01:00 81 25 129/98 (108) 100 Vapotherm 50.00 20.00 09/12/18 01:00 80 09/12/18 00:00 98.0 82 21 128/75 (92) 100 Vapotherm 50.00 20.00 09/12/18 00:00 100 Vapotherm 20.00 50 09/11/18 22:00 100 Vapotherm 30.00 50 09/11/18 21:00 74 14 139/75 (96) 100 Vapotherm 50.00 30.00 09/11/18 20:00 83 11 99/73 (82) 100 Vapotherm 50.00 30.00 09/11/18 20:00 100 Vapotherm 25.00 50 09/11/18 19:49 98.5 82 28 100 Vapotherm 50.00 30.00 09/11/18 19:00 75 09/11/18 18:20 100 Vapotherm 30.00 70 09/11/18 16:00 100 Vapotherm 30.00 70 09/11/18 16:00 98.7 09/11/18 14:00 85 35 100 Vapotherm 70.00 30.00 09/11/18 13:31 100 Vapotherm 30.00 70 09/11/18 13:00 15 100 Vapotherm 70.00 30.00 09/11/18 13:00 86 09/11/18 12:00 100 Vapotherm 30.00 70 09/11/18 12:00 98.1 09/11/18 12:00 85 24 133/70 (91) 100 Vapotherm 70.00 30.00 09/11/18 11:00 82 10 142/75 (97) 100 Vapotherm 70.00 30.00 09/11/18 10:00 81 17 141/76 (97) 100 Vapotherm 70.00 30.00 09/11/18 09:00 79 18 144/72 (96) 100 Vapotherm 70.00 30.00 09/11/18 08:00 99.3 09/11/18 08:00 80 18 134/85 (101) 94 Vapotherm 70.00 30.00 09/11/18 08:00 93 Vapotherm 30.00 80 I & O 09/12/18 07:00 Intake Total 1500 ml Output Total 4275 ml Balance -2775 ml Height & Weight Height: 5'7.00" Weight: 177lbs. 0.5oz. 80.497827ge; 32.6 BMI Method: General Appearance: Anxious, Chronically ill, Mild Distress HEENT: PERRL/EOMI, Moist Mucous Membranes Neck: Non Tender, Supple Respiratory: Accessory Muscle Use, Decreased Breath Sounds, Other (On Vapotherm ) Cardiovascular: Regular Rate, Rhythm, No Murmur Extremity: No Calf Tenderness, No Pedal Edema, Slow Capillary Refill Neurologic/Psychiatric: Alert, Other (did not respond to verbal stimuli, aroused to physical stimuli) Skin: Normal Color, Warm/Dry; No Mottled Results Lab Laboratory Tests 09/11/18 03:10 09/12/18 03:40 Assessment/Plan Assessment/Plan Septic Shock - resolved Acute respiratory failure -Currently on Vapotherm at 70% oxygen -Titrate as tolerated for Sp02 90-95% Afib RVR -Still On Cardizem gtt - Can't take PO meds -Cardiology following CP - resolved Severe Dementia/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 Currently pt is not able to take PO meds. He is not eating or drinking anything. Depending on how he wakes up without Ativan pt may need hospice or PEG tube. Hospice is consulted. Hypokalemia/Hypomagnesium - Replace Dysphagia -Aspiration precautions Hx of metastatic colon cancer - Last PET scan showed mets to lungs 2012 AP - monitor ROSS QUINTANILLA DO Sep 12, 2018 07:22
[2018-09-12] MEDS: NOREPINEPHRINE 4 MG in NS (IVPB) 250 ML IV SCH (07:37)
[2018-09-12] MEDS: NS IV 1000 ML 1,000 ML IV SCH (07:37)
--- NOTE | 2018-09-12 08:49 | Diagnostic Imaging Report ---
INDICATION: Septic shock. TECHNIQUE: Single view chest 2:58 AM. CORRELATION STUDY: 09/11/2018 FINDINGS: Limited depth of inspiration. Given this, there is chronic lung base likely atelectasis. Superimposed infiltrate not excluded. Additionally, crowding at the cardiac and vascular structures. IMPRESSION: 1. Suboptimal depth of inspiration with crowding at the lung bases. Atelectasis and/or infiltrate is present. Findings generally stable. Dictated by: Dictated on workstation # [id number]
--- NOTE | 2018-09-12 09:08 | Progress Note-Cardiology ---
Cardiology SOAP Progress Note Subjective: Unresponsive Objective: I&O/Vital Signs 09/11/18 09/12/18 09/12/18 09/12/18 22:00 00:00 00:00 01:00 Temp 98.0 Pulse 82 80 Resp 21 B/P (MAP) 128/75 (92) Pulse Ox 100 100 100 O2 Delivery Vapotherm Vapotherm Vapotherm O2 Flow Rate 30.00 20.00 50.00 20.00 FiO2 50 50 09/12/18 09/12/18 09/12/18 09/12/18 01:00 01:56 02:00 03:00 Pulse 81 84 85 Resp 25 27 23 B/P (MAP) 129/98 (108) 143/74 (97) 133/67 (89) Pulse Ox 100 100 99 95 O2 Delivery Vapotherm Vapotherm Vapotherm Vapotherm O2 Flow Rate 50.00 20.00 35.00 35.00 20.00 15.00 15.00 FiO2 50 09/12/18 09/12/18 09/12/18 09/12/18 04:00 04:00 05:00 06:00 Pulse 85 88 85 Resp 14 26 20 B/P (MAP) 137/76 (96) 113/86 (95) 112/97 (102) Pulse Ox 100 100 99 99 O2 Delivery Vapotherm Vapotherm Vapotherm Vapotherm O2 Flow Rate 20.00 35.00 35.00 35.00 15.00 15.00 15.00 FiO2 50 09/12/18 06:48 Pulse Ox 98 O2 Delivery Vapotherm O2 Flow Rate 15.00 FiO2 35 09/12/18 00:00 Intake Total 1200 ml Output Total 2600 ml Balance -1400 ml Weight (Pounds): 177 Weight (Ounces): 0.5 Weight (Calculated Kilograms): 80.791446 Constitutional: well-developed, well-nourished, other (unable to provide any history) Respiratory: No accessory muscle use; other (fair to good bilat air entry; diminished at the bases) Cardiovascular: irregularly irregular, S1 and S2, systolic murmur (2/6 NATALYA at card base) Gastrointestional: No tender; soft; No guarding, No rebound; audible bowel sounds Extremities: swelling (mild leg edema); No clubbing, No cyanosis Neurologic/Psychiatric: other (not able to answer questions of orientation; somnolent; seems to able to move all limbs equally) Skin: No rash on exposed areas, No ulcerations on exposed areas Results/Procedures: Labs Laboratory Tests 09/11/18 11:04: Glucometer 95 09/11/18 15:36: Glucometer 99 09/11/18 19:58: Glucometer 100 09/12/18 03:40: White Blood Count 7.9, Red Blood Count 3.68L, Hemoglobin 11.7L, Hematocrit 34L, Mean Corpuscular Volume 93, Mean Corpuscular Hemoglobin 32, Mean Corpuscular Hemoglobin Concent 34, Red Cell Distribution Width 14.5, Platelet Count 146, Mean Platelet Volume 11.4H, Neutrophils (%) (Auto) 79H, Lymphocytes (%) (Auto) 11L, Monocytes (%) (Auto) 9, Eosinophils (%) (Auto) 1, Basophils (%) (Auto) 0, Neutrophils # (Auto) 6.2, Lymphocytes # (Auto) 0.9L, Monocytes # (Auto) 0.7, Eosinophils # (Auto) 0.1, Basophils # (Auto) 0.0, Sodium Level 140, Potassium Level 2.9L, Chloride Level 107, Carbon Dioxide Level 22, Anion Gap 11, Blood Urea Nitrogen 20H, Creatinine 0.81, Estimat Glomerular Filtration Rate > 60, BUN /Creatinine Ratio 25, Glucose Level 110H, Calcium Level 8.8, Corrected Calcium 9.6, Phosphorus Level 2.1L, Magnesium Level 1.3L, Total Bilirubin 0.6, Aspartate Amino Transf (AST/SGOT) 56H, Alanine Aminotransferase (ALT/SGPT) 32, Alkaline Phosphatase 69, Total Protein 6.0L, Albumin 3.0L Microbiology 09/09/18 Blood Culture - Preliminary, Resulted No growth 09/09/18 MRSA Screen - Final, Complete MRSA not isolated A/P: Assessment: UTI with sepsis Sinus node dysfunction: NSR with 1st deg AVB alternating with PAF during this hospitalization Advanced dementia CAD: had cardiac cath a single coronary stent in 2004 (LAD stent: Taxus 2.5x16) . MPI of Aug 2013 showed apical infarction with small to mod ischemia, managed medically Echo of Aug 2013 showed LVEF 60%, mild AoV sclerosis and PASP 25 mmHg Chronic RBBB Colon cancer diagnosed in April 2013, treated with partial colectomy in Sep 2013 in . 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 They request no pacemaker or intubation/mech vent or any other invasive management TIM FERRERA Sep 12, 2018 09:08
[2018-09-12] MEDS: ZIPRASIDONE 40 MG (GEODON) CAP PO SCH (10:50)
[2018-09-12] MEDS: APIXABAN 2.5 MG (ELIQUIS) TABLET PO SCH (10:50)
[2018-09-12] MEDS: LORazepam 1 MG (ATIVAN) TAB PO SCH (10:55)
[2018-09-12] MEDS ORDERED: LORazepam INJ 2 MG/ML (ATIVAN) VIAL IVP PRN (12:30)
[2018-09-12] MEDS ORDERED: SCOPOLAMINE 1.5 MG (TRANSDERM-SCOP) PATCH TD NR (12:30)
--- NOTE | 2018-09-12 12:32 | Progress Note-Hospitalist ---
Progress Note Progress Notes/Assess & Plan Date Seen 09/12/18 Time Seen by Provider: 12:30 Assessment & Plan The accompanied her daughter to visit the patient today. The options were discussed with the Mau Alan from the palliative/comfort care service. They discussed these and allowed that they wished only comfort care at this point in time. Accordingly the patient was transferred to the [facility]. Comfort medications have been ordered. Physical exam: He does not respond to voice or light touch. He appears comfortable at this time. Lungs show shallow respirations. CV is regular. Abdomen is soft. Extremities show no edema. Impression: Severe dementia. Severe sepsis at admission. Plan: Comfort care measures as ordered. Focused Exam Lactate Level 09/09/18 13:54: Lactic Acid Level 1.45 GARRY PRIEST MD Sep 12, 2018 12:32
[2018-09-12] MEDS: LORazepam INJ 2 MG/ML (ATIVAN) VIAL IVP PRN ×2 (14:33→21:34)
[2018-09-13] MEDS: LORazepam INJ 2 MG/ML (ATIVAN) VIAL IVP PRN ×2 (05:44→10:50)
--- NOTE | 2018-09-13 09:33 | Progress Note-Hospitalist ---
URIAH MANTILLA DO 09/13/18 0933: Subjective HPI/CC On Admission Date Seen by Provider: Sep 13, 2018 Time Seen by Provider: 09:00 Pt is an 88yoCM with a PMH of dementia, HTN, NIDDMII who was direct admitted from OSH for septic shock. He is unable to provide me any history. Per outside records he presented due to lethargy and fever. He was found to be septic likely from a urinary source. HE was to be admitted at outside facility but unfortunately after antibiotic administration he has worsening hypotension and required pressors to maintain BP. He was transferred here for ICU level care due to septic shock. At this time he is lying in bed comfortably but does not respond. No family at bedside currently. He reportedly became agitated this morning and was given Ativan which has calmed him significantly. He is no longer on pressors. Subjective/Events-last exam Pt is placed on comfort care Patient is unresponsive Appears to be slightly restless but in no pain Comfort care measures seems to be reasonable Review of Systems Neurological: Confusion Objective Exam Vital Signs Vital Signs Date Time Temp Pulse Resp B/P (MAP) Pulse Ox O2 Delivery O2 Flow Rate FiO2 09/13/18 08:00 Room Air 09/12/18 23:58 5.00 09/12/18 12:00 87 09/12/18 11:30 98 14 147/91 (109) 09/12/18 11:15 99.4 09/12/18 10:23 30 Capillary Refill : General Appearance: No Apparent Distress, WD/WN, Chronically ill Neurologic/Psychiatric: Disoriented Results/Procedures Lab Patient resulted labs reviewed. Assessment/Plan Assessment and Plan Assess & Plan/Chief Complaint Assessment: End of life status Plan: Comfort care Critical Care Critical Care: Critically Ill Patient Diagnosis/Problems Diagnosis/Problems (1) Septic shock Status: Acute (2) Dysphagia Status: Acute Qualifiers: Dysphagia type: unspecified Qualified Codes: R13.10 - Dysphagia, unspecified (3) Dementia Status: Chronic Qualifiers: Alzheimer's disease onset: unspecified onset Dementia behavioral disturbance: with behavioral disturbance (4) Thrombocytopenia Status: Acute (5) AP (acute kidney injury) Status: Acute (6) Atrial fibrillation with RVR Status: Acute Clinical Quality Measures DVT/VTE Risk/Contraindication: Risk Factor Score Per Nursin RFS Level Per Nursing on Admit: 4+=Very High ETCHESON,TERRI K MED STUDENT 09/13/18 1018: Subjective Subjective/Events-last exam Patient is unresponsive He appears to be resting comfortably He is on comfort care Objective Exam General Appearance: No Apparent Distress Skin: Normal Color, Warm/Dry Assessment/Plan Assessment and Plan Assess & Plan/Chief Complaint Assessment: 1) Septic shock 2) UTI 3) Dementia Plan: 1) Continue pain and anxiety control medications URIAH MANTILLA DO Sep 13, 2018 09:33 TERRI LAMB MED STUDENT Sep 13, 2018 10:18
[2018-09-13] MEDS: morphine INJ 4 MG/ML 1 ML (VIAL/SYRINGE) IVP PRN ×2 (10:21→16:24)
[2018-09-14] MEDS: LORazepam INJ 2 MG/ML (ATIVAN) VIAL IVP PRN ×2 (01:52→10:51)
--- NOTE | 2018-09-14 11:22 | Progress Note-Hospitalist ---
URIAH MANTILLA 09/14/18 1122: Subjective HPI/CC On Admission Date Seen by Provider: Sep 14, 2018 Time Seen by Provider: 10:30 Pt is an 88yoCM with a PMH of dementia, HTN, NIDDMII who was direct admitted from OSH for septic shock. He is unable to provide me any history. Per outside records he presented due to lethargy and fever. He was found to be septic likely from a urinary source. HE was to be admitted at outside facility but unfortunately after antibiotic administration he has worsening hypotension and required pressors to maintain BP. He was transferred here for ICU level care due to septic shock. At this time he is lying in bed comfortably but does not respond. No family at bedside currently. He reportedly became agitated this morning and was given Ativan which has calmed him significantly. He is no longer on pressors. Subjective/Events-last exam Comfort care protocol Does not appear to be in any pain May need to go to [facility] tomorrow Objective Exam Vital Signs Vital Signs Date Time Temp Pulse Resp B/P (MAP) Pulse Ox O2 Delivery O2 Flow Rate FiO2 09/13/18 20:00 Room Air 09/12/18 23:58 5.00 09/12/18 12:00 87 09/12/18 11:30 98 14 147/91 (109) 09/12/18 11:15 99.4 09/12/18 10:23 30 Capillary Refill : General Appearance: No Apparent Distress, WD/WN, Other (Unresponsive) Results/Procedures Lab Patient resulted labs reviewed. Assessment/Plan Assessment and Plan Assess & Plan/Chief Complaint Assessment: End of life status Plan: Comfort care Critical Care Critical Care: Critically Ill Patient Diagnosis/Problems Diagnosis/Problems (1) Septic shock Status: Acute (2) Dysphagia Status: Acute Qualifiers: Dysphagia type: unspecified Qualified Codes: R13.10 - Dysphagia, unspecified (3) Dementia Status: Chronic Qualifiers: Alzheimer's disease onset: unspecified onset Dementia behavioral disturbance: with behavioral disturbance (4) Thrombocytopenia Status: Acute (5) AP (acute kidney injury) Status: Acute (6) Atrial fibrillation with RVR Status: Acute Clinical Quality Measures DVT/VTE Risk/Contraindication: Risk Factor Score Per Nursin RFS Level Per Nursing on Admit: 4+=Very High TERRI LAMB MED STUDENT 09/14/18 1200: Subjective Subjective/Events-last exam Patient appears to be resting comfortably Family member states that he does not appear to be in pain Objective Exam General Appearance: No Apparent Distress Respiratory: Chest Non Tender, Wheezing Cardiovascular: Regular Rate, Rhythm, Tachycardia Skin: Normal Color, Warm/Dry Assessment/Plan Assessment and Plan Assess & Plan/Chief Complaint Assessment: 1) Septic shock 2) end of life Plan: 1) continue comfort care 2) add URIAH Joy DO Sep 14, 2018 11:22 TERRI LAMB MED STUDENT Sep 14, 2018 12:00
--- NOTE | 2018-09-15 08:33 | Discharge Summary-Hospitalist ---
Diagnosis/Chief Complaint Date of Admission Sep 09, 2018 at 13:32 Date of Discharge Admission Diagnosis Septic Shock Discharge Diagnosis (1) Septic shock Status: Resolved (2) Dysphagia Status: Acute (3) Dementia Status: Chronic (4) Thrombocytopenia Status: Acute (5) AP (acute kidney injury) Status: Acute (6) Atrial fibrillation with RVR Status: Acute Discharge Summary Discharge Physical Exam Allergies: Coded Allergies: No Known Drug Allergies (Unverified , 08/10/13) Vitals & I&Os Vital Signs Date Time Temp Pulse Resp B/P (MAP) Pulse Ox O2 Delivery O2 Flow Rate FiO2 09/14/18 20:00 Room Air 09/12/18 23:58 5.00 09/12/18 12:00 87 09/12/18 11:30 98 14 147/91 (109) 09/12/18 11:15 99.4 09/12/18 10:23 30 General Appearance: No Apparent Distress, Chronically ill, Other (unresponsive) Hospital Course Hospital course: Patient had a lengthy hospital course that started out with septic shock and aggressive IV fluids and management but due to the significant end-stage organ failure he was ultimately placed on hospice comfort care and was discharged in an uncomplicated manner back to half-way for end-of-life care. Labs (last 24 hrs) Microbiology 09/09/18 Blood Culture - Final, Complete No growth 09/09/18 MRSA Screen - Final, Complete MRSA not isolated Patient resulted labs reviewed. Discussion & Recommendations Discharge Planning: <30 minutes discharge planning Discharge Home Medications: Active Scripts Active Lorazepam Intensol (Lorazepam) 2 Mg/1 Ml Oral.conc 2 Mg PO Q2H PRN Morphine Sulfate Concentrate 20mg/ml (Morphine Sulfate) 100 Mg/5 Ml Solution 5 Mg PO Q2H PRN Instructions to patient/family Please see electronic discharge instructions given to patient. Clinical Quality Measures DVT/VTE Risk/Contraindication: Risk Factor Score Per Nursin RFS Level Per Nursing on Admit: 4+=Very High Problem Qualifiers (1) Dysphagia: Dysphagia type: unspecified Qualified Codes: R13.10 - Dysphagia, unspecified (2) Dementia: Alzheimer's disease onset: unspecified onset Dementia behavioral disturbance: with behavioral disturbance URIAH MANTILLA DO Sep 15, 2018 08:33
[2018-09-15] MEDS: LORazepam INJ 2 MG/ML (ATIVAN) VIAL IVP PRN ×2 (09:29→13:00)
[2018-09-15] MEDS ORDERED: MORP100S3 PO (09:59)
[2018-09-15] MEDS ORDERED: LORA2ORA PO (09:59)
[2018-09-15] MEDS ORDERED: SCOPOLAMINE PATCH REMOVAL TP NR (12:45)
[2018-09-15 13:30] VITALS: BP 147/91
== END 2018-09-15 13:20 | disposition hospice, inpatient (51) | DRG 871 ==
LOC: ICU 13:32 → 4TH 09-12 12:01
PROVIDERS: ADMIT Family Medicine; ATTEND Family Medicine
DX: A41.50 Gram-negative sepsis, unspecified (principal); R65.21 Severe sepsis with septic shock; N39.0 Urinary tract infection, site not specified; N17.9 Acute kidney failure, unspecified; J96.00 Acute respiratory failure, unspecified whether with hypoxia or hypercapnia; F02.81 Dementia in other diseases classified elsewhere, unspecified severity, with behavioral disturbance; G30.9 Alzheimer's disease, unspecified; Z66 Do not resuscitate; Z51.5 Encounter for palliative care; I12.9 Hypertensive chronic kidney disease with stage 1 through stage 4 chronic kidney disease, or unspecified chronic kidney disease; N18.3 Chronic kidney disease, stage 3 (moderate); I48.0 Paroxysmal atrial fibrillation; I44.0 Atrioventricular block, first degree; D69.59 Other secondary thrombocytopenia; R13.10 Dysphagia, unspecified; E11.9 Type 2 diabetes mellitus without complications; I25.10 Atherosclerotic heart disease of native coronary artery without angina pectoris; N40.1 Benign prostatic hyperplasia with lower urinary tract symptoms; R32 Unspecified urinary incontinence; R07.9 Chest pain, unspecified; E87.6 Hypokalemia; E83.42 Hypomagnesemia; Z85.038 Personal history of other malignant neoplasm of large intestine; Z90.49 Acquired absence of other specified parts of digestive tract; Z95.5 Presence of coronary angioplasty implant and graft
CPT/HCPCS: 36415; 36600; 71045; 80053; 82805; 82962; 83605; 83735; 84100; 84484; 85007; 85025; 85027; 87040; 87081; 93005; 93306